=== PATIENT | male | born 1965 ===

== ENCOUNTER 2023-06-01 05:10 | Day surgery (SDC) | payer OTHER ==
[~2023-06-01] VITALS: Ht 165.1 cm; Wt 88.5 kg
[~2023-06-01 05:10] MED LIST: COZAAR50 MG PO; CRESTOR20 MG PO; GLIMEPIRIDE2 MG; KOMBIGLYZE XR1 EAC2 PO
[2023-06-01] MEDS ORDERED: CEFTRIAXONE SODIUM 2,000 MG VIAL ONE (07:06)
[2023-06-01] MEDS ORDERED: METRONIDAZOLE/SODIUM CHLORIDE 500 MG/100 ML PIGGYBACK IV ONE ×2 (07:06→10:00)
[2023-06-01] MEDS ORDERED: HEMOSTATIC MATRIX 1 KIT KIT TOP ONE ×2 (09:44→10:00)
[2023-06-01] MEDS ORDERED: DIBUCAINE 15 GM OINT..GM. TUBE ONE (09:44)
[2023-06-01] MEDS ORDERED: CEFTRIAXONE SODIUM 2,000 MG VIAL IV ONE (10:00)
[2023-06-01] MEDS ORDERED: DIBUCAINE 15 GM OINT..GM. TUBE RECTAL ONE (10:00)
== END 2023-06-01 14:45 | disposition home or self-care (01) ==
LOC: CIR.AMB 05:10
PROVIDERS: ATTEND Surgery
DX: D12.8 Benign neoplasm of rectum (principal); K62.89 Other specified diseases of anus and rectum